=== PATIENT | male | born 1985 | race Caucasian/White ===

== ENCOUNTER 2022-11-07 14:46 | Emergency (ER) | payer SELFPAY ==
[2022-11-07] MEDS ORDERED: Sodium Chloride 0.9% 1,000 ML ONE (15:14)
[2022-11-07] MEDS ORDERED: methylPREDNISolone Sod Succ/PF 125 MG/2 ML VIAL ONE (15:14)
== END 2022-11-07 16:28 | disposition home or self-care (01) ==
LOC: NAV ERS 14:46
DX: T78.1XXA Other adverse food reactions, not elsewhere classified, initial encounter (principal)
CPT/HCPCS: 96374; J2930; J7050